=== PATIENT | male | born 1965 | race African-American/Black ===

== ENCOUNTER 2023-05-26 16:40 | Emergency (ER) | payer SELFPAY ==
[2023-05-26 17:31] VITALS: RESP 16; TEMP 98; BMI 23.7
[2023-05-26 17:55] LABS: HEMATOCRIT 47.9 % (35.4-49); HEMOGLOBIN 15.5 G/dL (11.7-16.9); MCHC 32.3 g/dl (32.0-35.9); MEAN CELL VOLUME 83.5 fl (80-96); MEAN PLT VOLUME 9.2 fl (7.5-11.1); PLATELET COUNT 166.7 10^3/uL (134-434); RBC 5.74 10^6/uL (4.00-5.60); WHITE BLOOD COUNT 5.2 10^3/uL (4.0-10.8)
[2023-05-26 18:12] LABS: INR 0.98 (0.83-1.09); PROTHROMBIN TIME (PATIENT) 11.4 SEC (9.7-13.0)
[2023-05-26 18:14] LABS: ACTIVATED PTT 31.5 SECONDS (25.2-36.5)
[2023-05-26 18:15] LABS: PLATELET ESTIMATE ADEQUATE
[2023-05-26 18:26] LABS: ALBUMIN 4.9 g/dl (3.4-5.0); BILIRUBIN,TOTAL 0.5 mg/dl (0.2-1); CALCIUM 10.2 mg/dl (8.5-10.1); CREATININE 1.3 mg/dl (0.6-1.3); POTASSIUM 3.9 mmol/L (3.5-5.1); TOT PROT 7.7 g/dl (6.4-8.2)
[2023-05-26 19:07] VITALS: BP 158/107; PULSE 89
[2023-05-26] MEDS: dilTIAZem HCL 60 MG TABLET PO ONE (19:42)
== END 2023-05-26 20:44 | disposition home or self-care (01) ==
LOC: FER 16:40
DX: I10 Essential (primary) hypertension (principal); R35.0 Frequency of micturition; R00.2 Palpitations
CPT/HCPCS: 36415; 71046-TC-FY; 80053; 81003; 84443; 84484; 85027; 85610; 85730; 87086; 93005; 99285-25

== ENCOUNTER 2024-06-26 21:15 | Emergency (ER) | payer OTHER ==
[2024-06-26 21:24] VITALS: BP 179/117; PULSE 77; RESP 16; TEMP 98.4; BMI 23.7
[2024-06-26] MEDS ORDERED: PHENAZOPYRIDINE HCL 100 MG TABLET (FP) ONE (21:50)
[2024-06-26] MEDS: PHENAZOPYRIDINE HCL 100 MG TABLET (FP) PO ONE (21:53)
== END 2024-06-26 22:02 | disposition home or self-care (01) ==
LOC: FER 21:15
DX: R30.0 Dysuria (principal); R33.9 Retention of urine, unspecified
CPT/HCPCS: 99284-25